=== PATIENT | female | born 1945 | race Caucasian/White ===

== ENCOUNTER 2023-05-06 08:26 | Emergency (ER) | payer MEDICARE, SELFPAY ==
--- NOTE | 2023-05-06 08:32 | ED.SKABFB ---
HPI - Skin/Abscess/Foreign Bdy General Chief complaint: Animal Bite Stated complaint: right foot dog puncture Time Seen by Provider: 05/06/23 09:00 Source: patient and RN notes reviewed Mode of arrival: ambulatory Limitations: dementia History of Present Illness HPI narrative: 78-year-old female presents concern for AA puncture wound on her right ankle. Reports a week and a half ago she was bit by her dog. Reports since then the ankle, foot, lower leg have become red, swollen, painful. Granddaughter reports she noticed black discoloration in ear the patient's toes. She denies fever. Denies drainage from the wound. MD complaint: other (Redness) Related Data Home Medications Medication Instructions Recorded Confirmed albuterol sulfate 2.5 mg/3 mL mg 05/06/23 (0.083 %) solution for nebulization albuterol sulfate 90 mcg/actuation inhalation 05/06/23 aerosol inhaler alendronate 70 mg tablet mg PO 05/06/23 citalopram 40 mg tablet mg 05/06/23 hydrocodone 5 mg-acetaminophen 325 tablet 05/06/23 mg tablet lisinopril 10 mg tablet mg 05/06/23 rivaroxaban 2.5 mg tablet (Xarelto) mg 05/06/23 rosuvastatin 10 mg tablet mg 05/06/23 tiotropium 2.5 mcg-olodaterol 2.5 inhalation 05/06/23 mcg/actuation mist for inhalation (Stiolto Respimat) trazodone 50 mg tablet mg 05/06/23 Allergies Allergy/AdvReac Type Severity Reaction Status Date / Time No Known Allergies Allergy Verified 05/06/23 08:34 Review of Systems Review of Systems: CONSTITUTIONAL: Denies malaise, chills, sweats, or fever. CARDIOVASCULAR: Denies chest pain, palpitations, or edema. RESPIRATORY: Denies cough or dyspnea. SKIN: Reports redness, swelling pain to the right ankle and foot. Denies purulent drainage, vesicles, bullae, numbness, pain beyond proportion MUSCULOSKELETAL: Denies myalgia. NEUROLOGIC: Denies headache. All systems reviewed & are unremarkable except as noted in HPI and below PMFSH Comments At time of signature, agree with nursing past medical, surgical, social and family history. There is no relevant family history pertinent to the presenting complaint Exam Narrative: GENERAL: Well-appearing, well-nourished, and in no acute distress. HEAD: Normocephalic, atraumatic. EYES: PERRLA, conjunctivae clear ENT: Mucous membranes moist. NECK: Supple. No lymphadenopathy CHEST: Clear to auscultation. No respiratory distress. HEART: Regular rate and rhythm. SKIN: Warm, dry. Erythema, induration, tenderness, warmth noted to the right ankle, foot. Ecchymosis noted proximal to the digits of the foot, scabbed puncture wound noted to the lateral ankle. No vesicles, bullae, necrosis, crepitus noted. NEURO: Alert and oriented x3. PSYCH: Normal mood and affect Course Course Emergency Course: Patient is aware of, understands and agrees to be transferred to the emergency. Patient and caregiver agrees to proceed directly to the emergency department. Portions of this record may have been created with voice recognition software Level of Care: Express Care Visit Vital Signs Vital signs: Reviewed. Transfer Transfered to: [facility] Transportation: Other (Private vehicle) Transfer rationale: Soft tissue infection Accepting physician: Rah MDM - Skin/Abscess/Foreign Bdy MDM Narrative Medical decision making narrative: Exam findings warrant further evaluation emergency room; patient is non-toxic appearing and is in no distress. Critical Care Time Critical Care Time Critical Care Time: No Discharge Plan Discharge Clinical Impression: Soft tissue infection of foot Patient Disposition: Acute Care Hospital Condition: Stable Prescriptions: No Action albuterol sulfate 2.5 mg /3 mL (0.083 %) solution for nebulization citalopram 40 mg tablet trazodone 50 mg tablet hydrocodone-acetaminophen 5-325 mg tablet alendronate 70 mg tablet PO
[2023-05-06 08:49] VITALS: BP 131/54; PULSE 80; RESP 16; TEMP 36.2; O2SAT 100
[2023-05-06 08:52] VITALS: BP 131/54; PULSE 80; RESP 16; TEMP 36.2; O2SAT 100
== END 2023-05-06 09:11 | disposition short-term general hospital (02) ==
PROVIDERS: Emergency Provider Nurse Practitioner; PCP Family Medicine
DX: L08.9 Local infection of the skin and subcutaneous tissue, unspecified (principal); E78.00 Pure hypercholesterolemia, unspecified; I10 Essential (primary) hypertension; J44.9 Chronic obstructive pulmonary disease, unspecified; M19.90 Unspecified osteoarthritis, unspecified site; M81.0 Age-related osteoporosis without current pathological fracture; F41.9 Anxiety disorder, unspecified; F32.A Depression, unspecified; Z79.01 Long term (current) use of anticoagulants
CPT/HCPCS: 99212; G0463